=== PATIENT | female | born 1995 | race Hispanic/Latino ===

== ENCOUNTER → 2023-01-26 | Outpatient (CLI) | payer OTHER ==
[~2023-01-26] MED LIST: PROHANCE 279.3MG/ML 15ML VIAL ONE; PROHANCE 279.3MG/ML 5ML VIAL ONE
== END ==
LOC: M PLAIMG 10:09
PROVIDERS: ATTEND Nurse Practitioner Family
DX: Z12.31 Encounter for screening mammogram for malignant neoplasm of breast (principal); Z80.3 Family history of malignant neoplasm of breast; N63.11 Unspecified lump in the right breast, upper outer quadrant
CPT/HCPCS: A9576; C8908

== ENCOUNTER → 2023-10-23 | Outpatient (CLI) | payer OTHER | LOC: M WHC 07:02 | PROVIDERS: ATTEND Nurse Practitioner Family | DX: R92.2 Inconclusive mammogram (principal) ==

== ENCOUNTER → 2024-06-13 | Outpatient (CLI) | payer OTHER ==
[~2024-06-13] MED LIST changes: -PROHANCE 279.3MG/ML 5ML VIAL ONE
== END ==
LOC: M PLAIMG 08:41
PROVIDERS: ATTEND Physician Assistant
DX: Z12.31 Encounter for screening mammogram for malignant neoplasm of breast (principal); Z80.3 Family history of malignant neoplasm of breast